=== PATIENT | male | born 1940 | race Caucasian/White ===

== ENCOUNTER 2019-06-19 12:19 | Inpatient (IN) | payer MEDICARE, OTHER ==
[~2019-06-19] VITALS: Ht 188 cm; Wt 104.3 kg
--- NOTE | 2019-06-19 12:49 | NUR ---
RECEIVED PT TO ROOM 2101 VIA WHEELCHAIR, WAS ABLE TO AMBULATE FROM WHEELCHAIR TO BED WITH STEADY GATE. ORIENTED PT TO ROOM AND CALL LIGHT. WILL ASSESS PT AND START PLAN OF CARE.
[2019-06-19] MEDS ORDERED: FLOMAX0.4 MG PO (13:20)
[2019-06-19] MEDS ORDERED: CATAPRES0.1 MG PO (13:24)
[2019-06-19] MEDS ORDERED: LIPITOR20 MG PO (13:24)
[2019-06-19] MEDS ORDERED: LISINOPRIL-HCT1 EAC8 PO (13:25)
[2019-06-19] MEDS ORDERED: PROCARDIA XL30 MG PO (13:25)
[2019-06-19] MEDS ORDERED: TRESIBA FL100 UNIT/1 SC (13:26)
[2019-06-19] MEDS ORDERED: PIOGLITAZONE15 MG PO (13:26)
[2019-06-19] MEDS ORDERED: XARELTO20 MG PO (13:27)
[2019-06-19] MEDS ORDERED: TENORMIN50 MG PO (13:27)
[2019-06-19] MEDS ORDERED: HYTRIN5 MG PO (13:27)
[2019-06-19 13:38] LABS: BASOPHILS 0.2 % (0-2); EOSINOPHILS 2.8 % (0-7); HEMATOCRIT 32.6 % (42.0-54.0); HEMOGLOBIN 10.2 g/dL (13.5-17.5); IMMATURE GRANULOCYTES 0.2 % (0-5); LYMPHOCYTES 12.4 % (15-50); MCH 28.3 pg (26.0-34.0); MCHC 31.3 g/dL (31.0-37.0); MCV 90.3 fL (80.0-100.0); MEAN PLATELET VOLUME 10.3 fL (7.4-10.4); MONOCYTES 7.6 % (2-11); NEUTROPHILS 76.8 % (40-80); PLATELET COUNT 219 10x3/uL (130-400); RBC 3.61 10x6/uL (4.20-6.10); RDW 15.2 % (11.5-14.5); WBC 10.9 10x3/uL (4.8-10.8)
[2019-06-19 14:01] LABS: ALBUMIN 3.4 g/dL (3.4-5.0); ALKALINE PHOSPHATASE 92 U/L (46-116); ALT (SGPT) 29 U/L (10-68); BILIRUBIN - TOTAL 0.38 mg/dL (0.2-1.3); CALC OSMOLALITY 292 mosm/kg (275-300); CALCIUM 8.3 mg/dL (8.5-10.1); CARBON DIOXIDE 29.1 mmol/L (21.0-32.0); CHLORIDE - SERUM 101 mmol/L (98-107); CKMB 2.4 U/L (0.0-3.6); CREATINE KINASE 210 UL (21-232); CREATININE - SERUM 2.4 mg/dL (0.6-1.3); GLUCOSE 195 mg/dL (74-106); POTASSIUM - SERUM 3.6 mmol/L (3.5-5.1); PROTEIN - SERUM 6.6 g/dL (6.4-8.2); SODIUM 139 mmol/L (136-145); UREA NITROGEN 41 mg/dL (7-18); eGFR NON AFRICAN AMERICAN 28 mL/min (90-120)
[2019-06-19 14:12] VITALS: BP 157/84; BMI 29.6
[2019-06-19 15:09] VITALS: BP 157/84
[2019-06-19 16:29] LABS: % SATURATION 10 % (15-55); IRON 38 ug/dl (35-150); TOTAL IRON BIND CAPACITY 377 ug/dl (260-445); UNSAT IRON BIND CAPACITY 339 ug/dl (150-375)
[2019-06-19 18:26] VITALS: BP 144/81
--- NOTE | 2019-06-19 19:05 | NUR ---
REPORT RECEIVED, WILL CONTINUE POC. PATIENT IS AAO, UP AD NIDA. PATIENT IS SITTING UP IN BED, DAUGHTER AT BEDSIDE. NO S/S OF DISTRESS OBSERVED, RR EVEN AND UNLABORED ON ROOM AIR. PATIENT DENIES NEEDS AT THIS TIME. CL IN REACH, BED LOCKED AND LOWERED. WILL CTM.
[2019-06-19 19:16] LABS: CALCIUM 8.9 mg/dL (8.5-10.1); CARBON DIOXIDE 30.6 mmol/L (21.0-32.0); CHLORIDE - SERUM 101 mmol/L (98-107); CKMB 2.3 U/L (0.0-3.6); CREATINE KINASE 206 UL (21-232); CREATININE - SERUM 2.5 mg/dL (0.6-1.3); SODIUM 137 mmol/L (136-145); TROPONIN-I 0.019 ng/mL (0.000-0.060); UREA NITROGEN 43 mg/dL (7-18); eGFR NON AFRICAN AMERICAN 27 mL/min (90-120)
[2019-06-19 19:21] LABS: CALC OSMOLALITY 294 mosm/kg (275-300); GLUCOSE 286 mg/dL (74-106)
[2019-06-19 19:22] LABS: POTASSIUM - SERUM 2.8 mmol/L (3.5-5.1)
--- NOTE | 2019-06-19 19:36 | NUR ---
PT REPORT RECIEVED FROM CAIT ROBERTS. PT RESTING ON BACK ALERT AND ORIENTED X4. RR EVEN AND UNLABORED ON 2L O2 NC. PT WEAK AND NEEDS ASSISTANCE WITH ADL'S. PT PEG TUBE FEEDING OF GLUCERNA 1.5 @45 WITH A 100CC FLUSH Q4. PT STATES HIS PAIN IS "THE SAME ALWAYS." 03/06. PT DENIES ANY FURTHER NEEDS ST THIS TIME. BED LOW CALL LIGHT WITHIN REACH. WILL CONTINUE TO MONITOR.
[2019-06-19 20:00] VITALS: BP 157/75
--- NOTE | 2019-06-19 20:00 | NUR ---
CRITICAL POTASSIUM RECEIVED, 20MEG OF K DUR ADMINISTERED. WILL CTM.
--- NOTE | 2019-06-19 22:35 | NUR ---
CONTINUING PROTOCOL FOR CRITICALLY LOW POTASSIUM. ANOTHER 20MEQ K DUR ADMINISTERED.
[2019-06-20] VITALS (7 sets, daily range): BP systolic 140–166; BP diastolic 74–89; Ht 188 cm; Wt 104.3 kg
[2019-06-20 00:18] LABS: APPEARANCE CLEAR (CLEAR); BILIRUBIN NEGATIVE (NEGATIVE); COLOR YELLOW (YELLOW); GLUCOSE 100 mg/dL (NEGATIVE); KETONE NEGATIVE (NEGATIVE); NITRITE NEGATIVE (NEGATIVE); PROTEIN 1+ mg/dL (NEGATIVE); UROBILINOGEN NORMAL (NORMAL)
[2019-06-20 00:26] LABS: BACTERIA FEW /hpf (NEGATIVE); EPITHELIAL CELLS 0-5 /hpf (0-5); RED CELLS - URINE 0-5 /hpf (0-5); WHITE CELLS - URINE NSEEN /hpf (NEGATIVE)
[2019-06-20 01:57] LABS: CKMB 1.6 U/L (0.0-3.6); CREATINE KINASE 178 UL (21-232); TROPONIN-I < 0.017 ng/mL (0.000-0.060)
--- NOTE | 2019-06-20 04:13 | NUR ---
I have reviewed this patient and I concur with the Shift Assessment completed by the Licensed Practical Nurse today this shift.
[2019-06-20 05:13] LABS: BASOPHILS 0.2 % (0-2); EOSINOPHILS 1.1 % (0-7); HEMATOCRIT 32.4 % (42.0-54.0); HEMOGLOBIN 10.4 g/dL (13.5-17.5); IMMATURE GRANULOCYTES 0.4 % (0-5); LYMPHOCYTES 9.5 % (15-50); MCHC 32.1 g/dL (31.0-37.0); MCV 90.3 fL (80.0-100.0); MEAN PLATELET VOLUME 9.9 fL (7.4-10.4); MONOCYTES 7.6 % (2-11); NEUTROPHILS 81.2 % (40-80); PLATELET COUNT 233 10x3/uL (130-400); RBC 3.59 10x6/uL (4.20-6.10); RDW 15.5 % (11.5-14.5); WBC 12.6 10x3/uL (4.8-10.8)
[2019-06-20 05:28] LABS: ANION GAP 11.9 mmol/L (8-16); CALCIUM 8.8 mg/dL (8.5-10.1); CREATININE - SERUM 2.3 mg/dL (0.6-1.3)
[2019-06-20 05:33] LABS: POTASSIUM - SERUM 2.9 mmol/L (3.5-5.1)
--- NOTE | 2019-06-20 07:30 | NUR ---
A/A/OX4. DENIES ANY PAIN, DISCOMFORT OR SOB AND VOICES NO REQUESTS. ASSESSMENT COMPLETED AND WILL CONTINUE POC.
--- NOTE | 2019-06-20 14:00 | NUR ---
IV LEAKING AT SITE. DC'D IV AND RESTARTED IN RIGHT HAND WITH 20 G X 1 ATTEMPT. PT TOLERATED WELL.
--- NOTE | 2019-06-20 17:19 | NUR ---
I HAVE REVIEWED THIS PATIENT AND I CONCUR WITH THE SHIFT ASSESSMENT COMPLETED BY THE SCIENTIFIC INFORMATICS ANALYST TODAY THIS SHIFT
--- NOTE | 2019-06-21 01:13 | NUR ---
PT RESTING IN BED WITH EYES CLOSED RR EVEN AND UNLABORED. NO S/S OF DISTRESS AT THIS TIME. BED LOW CALL LIGHT WITHIN REACH. WILL CONTINUE TO MONITOR.
--- NOTE | 2019-06-21 03:24 | NUR ---
I have reviewed this patient and I concur with the Shift Assessment completed by the Licensed Practical Nurse today this shift.
[2019-06-21 04:30] VITALS: BP 158/80
[2019-06-21 04:30] LABS: BASOPHILS 0.3 % (0-2); EOSINOPHILS 3.9 % (0-7); HEMATOCRIT 30.9 % (42.0-54.0); HEMOGLOBIN 9.5 g/dL (13.5-17.5); IMMATURE GRANULOCYTES 0.4 % (0-5); MCH 27.8 pg (26.0-34.0); MCHC 30.7 g/dL (31.0-37.0); MCV 90.4 fL (80.0-100.0); MEAN PLATELET VOLUME 10.5 fL (7.4-10.4); MONOCYTES 10.2 % (2-11); NEUTROPHILS 67.2 % (40-80); PLATELET COUNT 191 10x3/uL (130-400); RBC 3.42 10x6/uL (4.20-6.10); RDW 15.5 % (11.5-14.5); WBC 10.6 10x3/uL (4.8-10.8)
[2019-06-21 04:55] LABS: CALCIUM 8.4 mg/dL (8.5-10.1); CREATININE - SERUM 2.1 mg/dL (0.6-1.3)
--- NOTE | 2019-06-21 06:45 | NUR ---
REPORT RECEIVED. HE IS ALERT AND AWAKE. RESP EVEN WITHOUT LABOR. STATES I HOPE I GO HOME TODAY. SALINE LOCK IN RIGHT HAND INTACT. HE HAS SLIGHT EDEMA TO FEET BUT SKIN IS WRINKLED IN PLACES, 1+ EDEMA TO ANKLE AREA ONLY. BED IS LOCKED AND IN LOWEST POSITION. CAREPLAN REVIEW WITH SAFETY PRECAUTIONS IN PLACE. CL IN REACH
[2019-06-21 09:17] VITALS: BP 170/88
[2019-06-21] MEDS ORDERED: BUMEX2 MG PO (10:43)
[2019-06-21] MEDS ORDERED: K-DUR20 MEQ PO (10:44)
--- NOTE | 2019-06-21 11:24 | MORECARE ---
CASE MANAGEMENT DISCHARGE SUMMARY PATIENT: MANJEET COPELAND UNIT: [id number] ADM DATE: 06/19/19 AGE: 78 : 39 SEX: M ROOM/BED: D.2102 AUTHOR: FAY YOUNG PHYSICIAN: REFERRING PHYSICIAN: CYNTHIA SMITH MD DATE OF SERVICE: 06/21/19 Discharge Plan Patient Name: MANJEET COPELAND Facility: [facility]:[place] : 1940 Planned Disposition: Home Anticipated Discharge Date: Discharge Date: Expected LOS: Initial Reviewer: [email or web address] Initial Review Date: 06/21/2019 Generated: 06/21/19 12:23 pm Patient Name: MANJEET COPELAND Page [phone] at 1124 All edits/amendments must be made on the electronic document DICTATION DATE: 06/21/19 112 WRINGER MACHINE OPERATOR: DESIRE 06/21/19 1123 RPT#: [id number] DC DATE: STATUS: ADM IN [facility] [address] [place] [address] END OF REPORT
--- NOTE | 2019-06-21 11:52 | MORECARE ---
CASE MANAGEMENT DISCHARGE SUMMARY PATIENT: MANJEET COPELAND UNIT: [id number] ADM DATE: 06/19/19 AGE: 78 : 39 SEX: M ROOM/BED: D.210 AUTHOR: FAY YOUNG PHYSICIAN: REFERRING PHYSICIAN: CYNTHIA SMTIH MD DATE OF SERVICE: 06/21/19 Discharge Plan Patient Name: MANJEET COPELAND Facility: [facility]:[place] : 1940 Planned Disposition: Home Anticipated Discharge Date: Discharge Date: Expected LOS: Initial Reviewer: [email or web address] Initial Review Date: 06/21/2019 Generated: 06/21/19 12:51 pm DCPIA - Discharge Planning Initial Assessment Updated by [email or web address]: Deena Parker on 06/21/19 11:49 am * Is the patient Alert and Oriented? Yes * PCP SARAH * Pharmacy [facility] * Preadmission Environment Home Alone * ADLs Independent * Equipment Glucometer * List name and contact numbers for known caregivers / representatives who currently or will assist patient after discharge: YOANNA PEREZ, DAUGHTER, * Additional services required to return to the preadmission environment? No * Can the patient safely return to the preadmission environment? Yes * Has this patient been hospitalized within the prior 30 days at any hospital? No Last DP export: 06/21/19 10:24 Patient Name: MANJEET COPELAND Page 43107 at 1152 All edits/amendments must be made on the electronic document DICTATION DATE: 06/21/19 1151 ALMOND HULLER: DM 06/21/19 1151 RPT#: [id number] DC DATE: STATUS: ADM IN [facility] [address] [place] [address] END OF REPORT
--- NOTE | 2019-06-21 11:59 | MORECARE ---
CASE MANAGEMENT DISCHARGE SUMMARY PATIENT: MANJEET COPELAND UNIT: [id number] ADM DATE: 06/19/19 AGE: 78 : 39 SEX: M ROOM/BED: D.2102 AUTHOR: FAY YOUNG PHYSICIAN: REFERRING PHYSICIAN: CYNTHIA SMITH MD DATE OF SERVICE: 06/21/19 Discharge Plan Patient Name: MANJEET COPELAND Facility: [facility]:[place] : 1940 Planned Disposition: Home Anticipated Discharge Date: Discharge Date: Expected LOS: Initial Reviewer: [email or web address] Initial Review Date: 06/21/2019 Generated: 06/21/19 12:59 pm Comments DCP- Discharge Planning Updated by [email or web address]: Deena Parker on 06/21/19 10:[address] Patient Name: MANJEET COPELAND Admission Status: Elective Accout number: [id number] Admission Date: 06-19-2019 : 1940 Admission Diagnosis: Attending: CYNTHIA SMITH Current LOS: 2 Anticipated DC Date: Planned Disposition: Home Primary Insurance: MEDICARE A & B Discharge Planning Comments: CM MET WITH PATIENT AND FAMILY THIS MORNING ABOUT DC PLANNING/NEEDS. STATES PLANS TO DC TO HOME AND IS WANTING TO GO TODAY. DENIES NEED FOR HH, REHAB, OR EQUIPMENT. CM WILL FOLLOW AND ASSIST NEEDED. Water Safety Instructor: Deena Parker DCPIA - Discharge Planning Initial Assessment Updated by [email or web address]: Deena Parker on 06/21/19 11:49 am * Is the patient Alert and Oriented? Yes * PCP SARAH * Pharmacy [facility] * Preadmission Environment Home Alone * ADLs Independent * Equipment Glucometer * List name and contact numbers for known caregivers / representatives who currently or will assist patient after discharge: YOANNA PEREZ, DAUGHTER, * Additional services required to return to the preadmission environment? No * Can the patient safely return to the preadmission environment? Yes * Has this patient been hospitalized within the prior 30 days at any hospital? No Last DP export: 06/21/19 10:52 Patient Name: MANJEET COPELAND Page [phone] at 1159 All edits/amendments must be made on the electronic document DICTATION DATE: 06/21/191158 HOTEL GUEST SERVICE AGENT: DESIRE 06/21/191158 RPT#: [id number] DC DATE: STATUS: ADM IN [facility] [address] [place] [address] END OF REPORT
--- NOTE | 2019-06-21 13:00 | NUR ---
DISCHARGE PAPERS EXPLAINED IN DETAIL WITH FAMILY PRESENT AND DAUGHTER IN LAW WHO SETS HIS MEDS UP. AWARE OF NEW MEDS, TO WEIGH SELF DAILY AND REPORT TO MD IF WEIGT GAIN OF 5 POUNDS OR MORE, REVIEW OF CURRENT MEDICATIONS DONE, HE UNDERSTANDS TO MONITOR URINE OUTPUT AND TO REPORT DECREASE IN AMOUNT OR ISSUES TO MD. SALINE LOCK TO TOP OF RIGHT HAND D/C WITH CATH TIP INTACT, MINIMAL BLEEDING CONTROLLED. TELEMETRY REMOVED AND RETURNED TO COMMERCIAL DRIVER'S LICENSE DRIVER. RESP EVEN WITHOUT LABOR, NO C/O VOICED. STABLE CONDITION.
--- NOTE | 2019-06-21 13:05 | NUR ---
TRANSFERED BY W/C TO PRIVATE [employer] AT THIS TIME
--- NOTE | 2019-06-21 15:51 | MORECARE ---
CASE MANAGEMENT DISCHARGE SUMMARY PATIENT: MANJEET COPELAND UNIT: [id number] ADM DATE: 06/19/19 AGE: 78 : 39 SEX: M ROOM/BED: D.2102 AUTHOR: FAY YOUNG PHYSICIAN: REFERRING PHYSICIAN: CYNTHIA SMITH MD DATE OF SERVICE: 06/21/19 Discharge Plan Patient Name: MANJEET COPELAND Facility: [facility]:[place] : 1940 Planned Disposition: Home Anticipated Discharge Date: Discharge Date: 06/21/2019 Expected LOS: Initial Reviewer: [email or web address] Initial Review Date: 06/21/2019 Generated: 06/21/19 4:51 pm Comments DCP- Discharge Planning Updated by [email or web address]: Deena Parker on 06/21/19 10:[address] Patient Name: MANJEET COPELAND Admission Status: Elective Accout number: [id number] Admission Date: 06-19-2019 : 1940 Admission Diagnosis: Attending: CYNTHIA SMITH Current LOS: 2 Anticipated DC Date: Planned Disposition: Home Primary Insurance: MEDICARE A & B Discharge Planning Comments: CM MET WITH PATIENT AND FAMILY THIS MORNING ABOUT DC PLANNING/NEEDS. STATES PLANS TO DC TO HOME AND IS WANTING TO GO TODAY. DENIES NEED FOR HH, REHAB, OR EQUIPMENT. CM WILL FOLLOW AND ASSIST NEEDED. Clinical Trial Assistant: Deena Parker DCPIA - Discharge Planning Initial Assessment Updated by [email or web address]: Deena Parker on 06/21/19 11:49 am * Is the patient Alert and Oriented? Yes * PCP SARAH * Pharmacy [facility] * Preadmission Environment Home Alone * ADLs Independent * Equipment Glucometer * List name and contact numbers for known caregivers / representatives who currently or will assist patient after discharge: YOANNA PEREZ, DAUGHTER, * Additional services required to return to the preadmission environment? No * Can the patient safely return to the preadmission environment? Yes * Has this patient been hospitalized within the prior 30 days at any hospital? No Last DP export: 06/21/19 11:00 Patient Name: MANJEET COPELAND Page 98139 at 1551 All edits/amendments must be made on the electronic document DICTATION DATE: 06/21/191550 MANAGER VALUATION: DESIRE 06/21/191550 RPT#: [id number] DC DATE:06/21/19 STATUS: DIS IN [facility] [address] [place] [address] END OF REPORT
== END 2019-06-21 13:05 | disposition home or self-care (01) | DRG 291 ==
LOC: D.SDCHOLD 12:19 → D.M2 12:32
PROVIDERS: Internal Medicine Nephrology; ADMIT Family Medicine; ATTEND Family Medicine
DX: I11.0 Hypertensive heart disease with heart failure (principal); I50.21 Acute systolic (congestive) heart failure; N17.9 Acute kidney failure, unspecified; Z79.4 Long term (current) use of insulin; E11.40 Type 2 diabetes mellitus with diabetic neuropathy, unspecified; I48.91 Unspecified atrial fibrillation; Z79.01 Long term (current) use of anticoagulants; D50.9 Iron deficiency anemia, unspecified; E87.6 Hypokalemia; R60.0 Localized edema; T38.3X5A Adverse effect of insulin and oral hypoglycemic [antidiabetic] drugs, initial encounter

== ENCOUNTER → 2020-11-23 14:47 | Outpatient (CLI) | payer MEDICARE, OTHER ==
[2019-06-20 12:02] VITALS: BMI 29.5
[~2020-11-23 14:47] MED LIST: BUMEX2 MG PO; CATAPRES0.1 MG PO; FLOMAX0.4 MG PO; HYTRIN5 MG PO; K-DUR20 MEQ PO; LIPITOR20 MG PO; LISINOPRIL-HCT1 EAC8 PO; PIOGLITAZONE15 MG PO; PROCARDIA XL30 MG PO; TENORMIN50 MG PO; TRESIBA FL100 UNIT/1 SC; XARELTO20 MG PO
== END | disposition home or self-care (01) ==
LOC: D.CT 14:47
PROVIDERS: ATTEND Nurse Practitioner
DX: K40.90 Unilateral inguinal hernia, without obstruction or gangrene, not specified as recurrent (principal)

== ENCOUNTER 2020-11-30 08:30 | Inpatient (IN) | payer MEDICARE, OTHER ==
[~2020-11-30] VITALS: Ht 188 cm; Wt 93.9 kg
--- NOTE | ~2020-11-30 | OP ---
PATIENT NAME: MANJEET COPELAND MEDICAL RECORD: [id number] :[birth year] LOCATION:D.MS [id number] ADMISSION DATE:12/01/20 SURGEON: PANDA LYN MD DATE OF OPERATION: 12/02/2020 PREOPERATIVE DIAGNOSES: 1. Right scrotal hematoma status post right inguinal hernia repair. 2. Ocpqm-ws-exnvydn kidney disease. 3. Urinary retention postop. 4. Acute blood loss anemia. 5. Diabetes mellitus. 6. Hypertension. 7. Chronic anticoagulation usage. POSTOPERATIVE DIAGNOSES: 1. Right scrotal hematoma status post right inguinal hernia repair. 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 3. Urinary retention postop. 4. Acute blood loss anemia. 5. Diabetes mellitus. 6. Hypertension. 7. Chronic anticoagulation usage. PROCEDURE: Evacuation of right scrotal hematoma. SURGEON: Panda Lyn MD REPORT OF PROCEDURE: The patient's perineal region and scrotum were all prepped and draped in sterile fashion. A longitudinal incision was made in the crease on the middle aspect of the patient's scrotum. We did blunt dissection into the patient's right hemiscrotum and encountered some bloody return. I was able to push my finger into the opening and there was a large amount of clot present in the right hemiscrotum. I was able to break up this clot and squeeze most of it out. Once we were able to get most of the clot out, I was able to feel again did not feel any evidence of any further clot present. The wound was then irrigated out thoroughly with peroxide and saline solution. At the conclusion of the case, I looked to see if there was any bleeding from the skin level in the scrotum and there was a small amount, which was treated with electrocautery. We then closed the opening using interrupted 4-0 Monocryl. The wounds was then dressed appropriately and a pressure dressing was applied to the right groin. COMPLICATIONS: None. CONDITION: Stable. ANESTHESIA: General endotracheal. BLOOD LOSS: 100 mL. TRANSINT:[id number] Voice Confirmation ID: [id number] DOCUMENT ID: [id number] OPERATIVE REPORT [id number] BETTINAGradyMANJEET CHRISTIAN MD CC: SYED BERMUDEZ [phone] DICTATION DATE: 12/02/20 123 INFORMATION LEAD: 12/02/201950 ADM IN [facility] [address] [place] [address]
[~2020-11-30 08:30] MED LIST changes: +NOVOLOG100 UNIT/1 SC
[2020-11-30 08:56] LABS: ANION GAP 12.4 mmol/L (8-16); BASOPHILS 0.3 % (0-2); CALCIUM 9.2 mg/dL (8.5-10.1); CARBON DIOXIDE 28.8 mmol/L (21.0-32.0); CREATININE - SERUM 2.1 mg/dL (0.6-1.3); EOSINOPHILS 3.5 % (0-7); HEMATOCRIT 38.8 % (42.0-54.0); HEMOGLOBIN 12.5 g/dL (13.5-17.5); IMMATURE GRANULOCYTES 0.3 % (0-5); LYMPHOCYTE ABS# 1.84 10x3/uL (1.32-3.57); MCH 28.2 pg (26.0-34.0); MCHC 32.2 g/dL (31.0-37.0); MCV 87.4 fL (80.0-100.0); MEAN PLATELET VOLUME 9.8 fL (7.4-10.4); MONOCYTES 7.3 % (2-11); NEUTROPHIL ABS# 8.33 10x3/uL (1.78-5.38); NEUTROPHILS 72.6 % (40-80); POTASSIUM - SERUM 3.2 mmol/L (3.5-5.1); RBC 4.44 10x6/uL (4.20-6.10); RDW 14.9 % (11.5-14.5); WBC 11.5 10x3/uL (4.8-10.8)
[2020-11-30 09:00] LABS: APTT 27.6 SECONDS (22.8-39.4); INR 1.16 (0.85-1.17); PLATELET COUNT 270 10x3/uL (130-400); PROTIME 13.7 SECONDS (11.6-15.0)
[2020-11-30 09:39] VITALS: BP 142/88; BMI 26.6
--- NOTE | 2020-11-30 15:11 | NUR ---
PT DENIES PAIN AT THIS TIME. STATES HE FEELS GOOD JUST THIRSTY. PROVIDED ICE CHIPS. PT TOLERATED.
--- NOTE | 2020-11-30 16:53 | NUR ---
DR BERMUDEZ AT BEDSIDE
--- NOTE | 2020-11-30 20:00 | NUR ---
BLADDER SCANNED PT 217ML ENCOURAGED PT TO CONTINUE TO DRINK IV FLUID INCREASED TO 150ML/HR
--- NOTE | 2020-11-30 20:15 | NUR ---
REINFORCED DRESSING AT RT GROIN
--- NOTE | 2020-11-30 21:08 | NUR ---
ASSISTED PT BACK TO BED FROM TOILET. STATES IS A LITTLE DIZZY THIS TIME. DAUGHTER AT BEDSIDE TO TAKE PT FSBS- STATES IS 238, DAUGHTER AND PT ADMINISTERED PT HOME INSULIN. DAUGHTER PROVIDED FOOD AND IS ASSISTING PT WITH EATING. 5 BP 141/85
--- NOTE | 2020-11-30 21:45 | NUR ---
BLADDER SCANNED PT, 422ML
--- NOTE | 2020-11-30 22:10 | NUR ---
CLAY CATHETER INSERTED, 16 FR, WITH 375ML RETURN, BLUE/GREEN URINE, SCROTOM IS BRUISED AND SWOLLEN
[2020-11-30 23:03] VITALS: BP 136/77; BMI 26.6
--- NOTE | 2020-11-30 23:15 | NUR ---
RECEIVED PT FROM OUTPATIENT. LAYING IN BED A&O X4. PIV TO LEFT HAND PATENT AND INFUSING. SCROTUM SWOLLEN AND PURPLE. DENTURE, PARTIALS. EDUCATED PT ON CL AND NEEDS, VERBALIZED UNDERSTANDING. BED LOW, CL IN REACH.
[2020-12-01] VITALS (8 sets, daily range): BP systolic 94–136; BP diastolic 55–77
[2020-12-01 05:39] LABS: BASOPHILS 0.1 % (0-2); EOSINOPHILS 0 % (0-7); IMMATURE GRANULOCYTES 0.4 % (0-5); LYMPHOCYTE ABS# 1.66 10x3/uL (1.32-3.57); LYMPHOCYTES 11.7 % (15-50); MCH 26.9 pg (26.0-34.0); MCHC 30.7 g/dL (31.0-37.0); MCV 87.8 fL (80.0-100.0); MONOCYTES 8.8 % (2-11); NEUTROPHIL ABS# 11.18 10x3/uL (1.78-5.38); PLATELET COUNT 247 10x3/uL (130-400); RDW 14.9 % (11.5-14.5); WBC 14.2 10x3/uL (4.8-10.8)
[2020-12-01 05:50] LABS: ALBUMIN 2.5 g/dL (3.4-5.0); BILIRUBIN - TOTAL 0.48 mg/dL (0.2-1.3); CALCIUM 7.4 mg/dL (8.5-10.1); MAGNESIUM - SERUM 1.8 mg/dL (1.8-2.4); PROTEIN - SERUM 5.1 g/dL (6.4-8.2)
[2020-12-01 05:59] LABS: ANION GAP 19.5 mmol/L (8-16); CARBON DIOXIDE 19.3 mmol/L (21.0-32.0); CREATININE - SERUM 3.1 mg/dL (0.6-1.3); POTASSIUM - SERUM 3.8 mmol/L (3.5-5.1)
[2020-12-01 06:10] LABS: HEMATOCRIT 25.1 % (42.0-54.0); HEMOGLOBIN 7.7 g/dL (13.5-17.5); RBC 2.86 10x6/uL (4.20-6.10)
--- NOTE | 2020-12-01 07:15 | NUR ---
PT RESTING QUIETLY IN BED. RESP EVEN AND UNLABORED. DENIES PAIN AT THIS TIME. IV TO LEFT HAND WITH NS @ 75ML/HR INFUSING VIA PUMP. SITE WITHOUT REDNESS OR EDEMA. SCROTAL SWELLING NOTED, WITH BRUISING DISCOLORATION ALSO. F/C PATENT TO GRAVITY DRAINING BLUE TINGED URINE. DENIES FURTHER NEEDS AT THIS TIME. CL WITHIN REACH. ENCOURAGED TO CALL WITH NEEDS. CONTINUE POC
[2020-12-01 12:56] LABS: HEMATOCRIT 20.2 % (42.0-54.0)
[2020-12-01 13:13] LABS: HEMOGLOBIN 6.5 g/dL (13.5-17.5)
--- NOTE | 2020-12-01 14:00 | NUR ---
DR. MEEHAN AT PT BEDSIDE. SPOKE WITH HIM REGARDING URINE BEING GREENISH BLUE FROM DYE INJECTED DURING SURGERY 11/30/20. DISCUSSED DYE IN URINE AND NEED FOR UA AND URINE CULTURE AND IF URINE WOULD ALTAR UA AND CULTURE. HE VOICES UNCERTAINTY AND STATES THAT OBTAINING A URINE SAMPLE COULD WAIT, NOT TO MAKE IT A PRIORITY AT THIS TIME. WILL PASS TO ONCOMING SHIFT TO OBTAIN AT LATER TIME.
--- NOTE | 2020-12-01 19:45 | NUR ---
RECEIVED BEDSIDE REPORT. PT LAYING IN BED DISORIENTATED TO TIME AND SITUATION. PIV TO LEFT HAND PATENT AND INFUSING, NO REDNESS OR SWELLING. SCROTUM SWOLLEN AND PURPLE IN COLOR. INCISION TO RIGHT GRION AREA, DRSG C/D/I. BED ALARM ON, CL IN REACH.
--- NOTE | 2020-12-01 22:09 | NUR ---
REPORT RECEIVED, PT A&O, DAUGHTER AT BEDSIDE. NO S/S OF DISTRESS OBSERVED. RR EVEN AND UNLABORED ON RA. PT HAS MOMENTS OF CONFUSION TO WHERE HE IS. BED LOCKED AND LOWERED, CL IN REACH. ASSESSMENT COMPLETE. WILL CONT POC.
[2020-12-02] VITALS (16 sets, daily range): BP systolic 115–163; BP diastolic 59–83
[2020-12-02 06:06] LABS: BASOPHILS 0.1 % (0-2); EOSINOPHILS 0.3 % (0-7); IMMATURE GRANULOCYTES 0.2 % (0-5); LYMPHOCYTE ABS# 0.82 10x3/uL (1.32-3.57); LYMPHOCYTES 7.2 % (15-50); MCH 27.6 pg (26.0-34.0); MCHC 32.1 g/dL (31.0-37.0); MEAN PLATELET VOLUME 9.6 fL (7.4-10.4); MONOCYTES 10.6 % (2-11); NEUTROPHIL ABS# 9.24 10x3/uL (1.78-5.38); NEUTROPHILS 81.6 % (40-80); RBC 2.94 10x6/uL (4.20-6.10); WBC 11.3 10x3/uL (4.8-10.8)
[2020-12-02 06:21] LABS: HEMATOCRIT 25.2 % (42.0-54.0); HEMOGLOBIN 8.1 g/dL (13.5-17.5); MCV 85.7 fL (80.0-100.0); PLATELET COUNT 177 10x3/uL (130-400)
[2020-12-02 06:39] LABS: ALBUMIN 2.6 g/dL (3.4-5.0); BILIRUBIN - TOTAL 0.54 mg/dL (0.2-1.3); CALCIUM 7.8 mg/dL (8.5-10.1); CREATININE - SERUM 3.1 mg/dL (0.6-1.3); MAGNESIUM - SERUM 2.2 mg/dL (1.8-2.4); PROTEIN - SERUM 5.5 g/dL (6.4-8.2)
[2020-12-02 06:40] LABS: ANION GAP 12.9 mmol/L (8-16); CARBON DIOXIDE 24.3 mmol/L (21.0-32.0); POTASSIUM - SERUM 3.2 mmol/L (3.5-5.1)
--- NOTE | 2020-12-02 07:59 | NUR ---
RESTING IN BED, NO DISTRESS NOTED, NPO FOR SCROTAL DRAINAGE, MONITOR SUGARS, NEED UA SPECIMEN
--- NOTE | 2020-12-02 11:00 | NUR ---
TAKEN TO SURGERY PER BED
--- NOTE | 2020-12-02 13:39 | NUR ---
RETURNED FROM SURGERY
--- NOTE | 2020-12-02 13:50 | NUR ---
dressing saturated upon arrival to floor, changed pads under pt, cont to monitor
[2020-12-02 15:51] LABS: BILIRUBIN NEGATIVE (NEGATIVE); KETONE NEGATIVE (NEGATIVE); NITRITE NEGATIVE (NEGATIVE); UROBILINOGEN NORMAL mg/dL (< 2)
[2020-12-02 15:53] LABS: WHITE CELLS - URINE 0-5 HPF (0-1)
[2020-12-02 15:54] LABS: BACTERIA OCC HPF (NONE SEEN); SQUAMOUS EPITHELIAL OCC HPF (0-4)
[2020-12-02 17:47] LABS: HEMATOCRIT 25.7 % (42.0-54.0); HEMOGLOBIN 8.4 g/dL (13.5-17.5)
--- NOTE | 2020-12-02 18:00 | NUR ---
pt confused and wanting to go home, son in room, served supper tray, cont to monitor
--- NOTE | 2020-12-02 19:45 | NUR ---
RECEIVED BEDSIDE REPORT. PT LAYING IN BED, A&O X3, DISORIENTATED TO TIME. PIV TO LEFT UPPER ARM PATENT AND S/L, NO REDNESS OR SWELLING. INCISION TO SCROTUM, DRSG C/D/I. CLAY IN PLACE, DRAINING TO GRAVITY, STATLOCK IN PLACE. PT BEDFAST, TOTAL CARE AT THIS TIME. EDUCATED PT ON CL AND NEEDS, VERBALIZED UNDERSTANDING. BED LOW, ALARM ON, CL IN REACH.
[2020-12-03] VITALS: BP 122/74
--- NOTE | 2020-12-03 01:30 | NUR ---
PT SITTING ON EDGE OF BED, PULLED OUT IV. BANDAGES SOILED. CHANGED DRESSING, PERFORMED BED BATH. PT TOLERATED WELL. BED LOW, CL IN REACH.
[2020-12-03 04:00] VITALS: BP 141/77
[2020-12-03 06:06] LABS: BASOPHILS 0.1 % (0-2); EOSINOPHILS 0.1 % (0-7); HEMATOCRIT 24.7 % (42.0-54.0); HEMOGLOBIN 7.9 g/dL (13.5-17.5); IMMATURE GRANULOCYTES 0.2 % (0-5); LYMPHOCYTE ABS# 0.95 10x3/uL (1.32-3.57); LYMPHOCYTES 7.6 % (15-50); MCH 27.9 pg (26.0-34.0); MCV 87.3 fL (80.0-100.0); MEAN PLATELET VOLUME 10.1 fL (7.4-10.4); MONOCYTES 10.2 % (2-11); NEUTROPHIL ABS# 10.23 10x3/uL (1.78-5.38); NEUTROPHILS 81.8 % (40-80); PLATELET COUNT 195 10x3/uL (130-400); RBC 2.83 10x6/uL (4.20-6.10); RDW 15.3 % (11.5-14.5); WBC 12.5 10x3/uL (4.8-10.8)
[2020-12-03 06:29] LABS: ALBUMIN 2.7 g/dL (3.4-5.0); ANION GAP 14.9 mmol/L (8-16); BILIRUBIN - TOTAL 0.64 mg/dL (0.2-1.3); CALCIUM 7.8 mg/dL (8.5-10.1); CARBON DIOXIDE 23.4 mmol/L (21.0-32.0); MAGNESIUM - SERUM 2.4 mg/dL (1.8-2.4); POTASSIUM - SERUM 3.3 mmol/L (3.5-5.1); PROTEIN - SERUM 5.9 g/dL (6.4-8.2)
[2020-12-03 06:32] LABS: CREATININE - SERUM 2.3 mg/dL (0.6-1.3)
--- NOTE | 2020-12-03 07:47 | NUR ---
RECIEVED BEDSIDE REPORT. RESTING. AROUSES TO VOICE. DENIES NEEDS AT THIS TIME. BED LOW POSITION, CALL LIGHT IN REACH. FRANKLYN ALARM ON. WILL CONTINUE TO MONITOR.
[2020-12-03 08:53] VITALS: BP 152/89
--- NOTE | 2020-12-03 10:42 | NUR ---
NEW IV STARTED IN LEFT AC. 20 GAUGE. GOT ON 4TH ATTEPMT
[2020-12-03 12:28] VITALS: BP 169/82
[2020-12-03 13:53] VITALS: Ht 188 cm; Wt 93.9 kg
[2020-12-03 15:08] LABS: HEMATOCRIT 23.5 % (42.0-54.0); HEMOGLOBIN 7.6 g/dL (13.5-17.5)
[2020-12-03 15:49] VITALS: BP 124/69
--- NOTE | 2020-12-03 16:12 | MORECARE ---
CASE MANAGEMENT DISCHARGE SUMMARY PATIENT: MANJEET COPELAND UNIT: [id number] ADM DATE: 12/01/20 AGE: 80 : 39 SEX: M ROOM/BED: D.[facility]9 AUTHOR: HECTOR,DOC PHYSICIAN: REFERRING PHYSICIAN: SYED BERMUDEZ MD DATE OF SERVICE: 12/03/20 Case Management Discharge Planning Summary DCP REVIEW SUMMARY ANTICIPATED D/C DATE: EXPECTED LOS : CASE STATUS: DCP Initiated INITIAL REVIEW: 12/01/2020 INITIAL REVIEWER: Deena Parker FINAL DISCHARGE DISPOSITION: : FINAL REVIEWER: FINAL REVIEW DATE: DCP Focus Questions & Answers QUESTION: ANSWER : PATIENT: MANJEET COPELAND ENCOUNTER: [id number] MEDICAL RECORD#: [id number] ADMISSION DATE: 12/01/2020 DISCHARGE DATE: ATTENDING MD: SYED CORBETT : AGE: 80 MARITAL STATUS: W DC PLAN ID: [id number] FACILITY: [facility] PRINTED ON: 12/03/20 16:12 CT All edits/amendments must be made on the electronic document DICTATION DATE: 12/03/201611 FUSELAGE FRAMER: DM 12/03/20 161 RPT#: [id number] DC DATE: STATUS: ADM IN [facility] [address] [place] [address] END OF REPORT
--- NOTE | 2020-12-03 16:25 | MORECARE ---
CASE MANAGEMENT DISCHARGE SUMMARY PATIENT: MANJEET COPELAND UNIT: [id number] ADM DATE: 12/01/20 AGE: 80 : 39 SEX: M ROOM/BED: D.2239 AUTHOR: HECTOR,DOC PHYSICIAN: REFERRING PHYSICIAN: SYED BERMUDEZ MD DATE OF SERVICE: 12/03/20 Case Management Discharge Planning Summary COMMENTS ENTERED DATE: 12/03/20 16:18 CT COMMENT TYPE: Discharge Planning REVIEWER: Deena Parker CM MET WITH PATIENT DAUGHTER YOANNA PEREZ TODAY. STATES SHE WILL STAY WITH HER DAD FOR LONG HE NEEDS WHEN HE RETURNS HOME. HE WILL NEED HOME HEALTH AND A WALKER AT HOME PER HIS DAUGHTER IF HE QUALIFIES. DAUGHTER ANTICIPATES HOME NO SOONER THAN TOMORROW. CM TO FOLLOW AND ASSIST NEEDED. I WILL SEND REFERRAL TO [facility] AND ORDER A WALKER FROM [facility]. DCP REVIEW SUMMARY ANTICIPATED D/C DATE: EXPECTED LOS : CASE STATUS: DCP Initiated INITIAL REVIEW: 12/01/2020 INITIAL REVIEWER: Deena Parker FINAL DISCHARGE DISPOSITION: : FINAL REVIEWER: FINAL REVIEW DATE: DCP Focus Questions & Answers DCP Screen QUESTION: ANSWER High Risk Factors: : None Age: : 79 + Prior living environment: : Lives Alone Disability ranking: : Grade 2: Slight disability DCP Evaluation QUESTION: ANSWER Patient's ability to cope with chronic illness : d. No chronic illness Would patient like to participate in any Care Coordination programs (if applicable): : Not applicable Mental health screen: : No mental health history DCP Re-evaluation QUESTION: ANSWER Would patient like to participate in any Care Coordination programs (if applicable): : Not applicable PATIENT: MANJEET COPELAND ENCOUNTER: [id number] MEDICAL RECORD#: [id number] ADMISSION DATE: 12/01/2020 DISCHARGE DATE: ATTENDING MD: SYED CORBETT : AGE: 80 MARITAL STATUS: W DC PLAN ID: [id number] FACILITY: [facility] PRINTED ON: 12/03/20 16:24 CT All edits/amendments must be made on the electronic document DICTATION DATE: 12/03/201623 PROJECT ARCHIVIST: DESIRE 12/03/201623 RPT#: [id number] DC DATE: STATUS: ADM IN [facility] [address] [place] [address] END OF REPORT
[2020-12-03 20:00] VITALS: BP 119/71
[2020-12-04 04:00] VITALS: BP 156/90
[2020-12-04 07:24] LABS: BASOPHILS 0.1 % (0-2); EOSINOPHILS 4.3 % (0-7); IMMATURE GRANULOCYTES 0.2 % (0-5); LYMPHOCYTE ABS# 1.79 10x3/uL (1.32-3.57); LYMPHOCYTES 14.3 % (15-50); MCHC 32.3 g/dL (31.0-37.0); MCV 86.7 fL (80.0-100.0); MEAN PLATELET VOLUME 10.1 fL (7.4-10.4); MONOCYTES 9.5 % (2-11); NEUTROPHILS 71.6 % (40-80); PLATELET COUNT 226 10x3/uL (130-400); RBC 3.39 10x6/uL (4.20-6.10); RDW 15.6 % (11.5-14.5); WBC 12.6 10x3/uL (4.8-10.8)
[2020-12-04 07:28] LABS: HEMATOCRIT 29.4 % (42.0-54.0); HEMOGLOBIN 9.5 g/dL (13.5-17.5)
[2020-12-04 07:58] LABS: ALBUMIN 2.9 g/dL (3.4-5.0); ANION GAP 14.6 mmol/L (8-16); BILIRUBIN - TOTAL 0.99 mg/dL (0.2-1.3); CALCIUM 8.3 mg/dL (8.5-10.1); CREATININE - SERUM 2.1 mg/dL (0.6-1.3); MAGNESIUM - SERUM 2.4 mg/dL (1.8-2.4); POTASSIUM - SERUM 3.6 mmol/L (3.5-5.1); PROTEIN - SERUM 6.5 g/dL (6.4-8.2)
[2020-12-04 08:44] VITALS: BP 115/41
[2020-12-04 13:54] VITALS: BP 135/81
--- NOTE | 2020-12-04 16:39 | MORECARE ---
CASE MANAGEMENT DISCHARGE SUMMARY PATIENT: MANJEET COPELAND UNIT: [id number] ADM DATE: 12/01/20 AGE: 80 : 39 SEX: M ROOM/BED: D.2239 AUTHOR: HECTOR,DOC PHYSICIAN: REFERRING PHYSICIAN: SYED BERMUDEZ MD DATE OF SERVICE: 12/04/20 Case Management Discharge Planning Summary COMMENTS ENTERED DATE: 12/04/20 16:26 CT COMMENT TYPE: Discharge Planning REVIEWER: Deena Parker REFERRAL SENT WITH [facility] OF [facility] WHEN PATIENT DISCHARGES. HE MAY NEED A WALKER DEPENDING ON PT EVAL. WE WILL NEED TO FAX DC ORDER AND SUMMARY TO [facility]. THEY CAN START CARE ON MONDAY IF PATIENT IS DC'D TODAY OR TOMORROW. ENTERED DATE: 12/03/20 16:18 CT COMMENT TYPE: Discharge Planning REVIEWER: Deena Parker CM MET WITH PATIENT DAUGHTER YOANNA PEREZ TODAY. STATES SHE WILL STAY WITH HER DAD FOR LONG HE NEEDS WHEN HE RETURNS HOME. HE WILL NEED HOME HEALTH AND A WALKER AT HOME PER HIS DAUGHTER IF HE QUALIFIES. DAUGHTER ANTICIPATES HOME NO SOONER THAN TOMORROW. CM TO FOLLOW AND ASSIST NEEDED. I WILL SEND REFERRAL TO [facility] AND ORDER A WALKER FROM [facility]. DCP REVIEW SUMMARY ANTICIPATED D/C DATE: EXPECTED LOS : CASE STATUS: DCP Initiated INITIAL REVIEW: 12/01/2020 INITIAL REVIEWER: Deena Parker FINAL DISCHARGE DISPOSITION: : FINAL REVIEWER: FINAL REVIEW DATE: DCP Focus Questions & Answers DCP Screen QUESTION: ANSWER High Risk Factors: : None Age: : 79 + Prior living environment: : Lives Alone Disability ranking: : Grade 2: Slight disability DCP Evaluation QUESTION: ANSWER Patient's ability to cope with chronic illness : d. No chronic illness Would patient like to participate in any Care Coordination programs (if applicable): : Not applicable Mental health screen: : No mental health history DCP Re-evaluation QUESTION: ANSWER Would patient like to participate in any Care Coordination programs (if applicable): : Not applicable PATIENT: MANJEET COPELAND ENCOUNTER: [id number] MEDICAL RECORD#: [id number] ADMISSION DATE: 12/01/2020 DISCHARGE DATE: ATTENDING MD: SYED CORBETT : AGE: 80 MARITAL STATUS: W DC PLAN ID: [id number] FACILITY: [facility] PRINTED ON: 12/04/20 16:39 CT All edits/amendments must be made on the electronic document DICTATION DATE: 12/04/201638 LEASE ATTENDANT: DESIRE 12/04/20 1639 RPT#: [id number] DC DATE: STATUS: ADM IN [facility] [address] [place] [address] END OF REPORT
[2020-12-04 17:11] VITALS: BP 155/88
[2020-12-04 19:36] VITALS: BP 152/90
--- NOTE | 2020-12-04 23:17 | NUR ---
PATIENT CONFUSED ABOUT WHERE HE IS. PIV TO LEFT ARM PATENT. DAUGHTER AT BEDSIDE. DENIES PAIN. WILL CONTINUE TO MONITOR.
[2020-12-05 04:21] VITALS: BP 160/93
[2020-12-05 07:13] VITALS: BP 167/96
[2020-12-05 07:43] LABS: ALBUMIN 2.7 g/dL (3.4-5.0); BILIRUBIN - TOTAL 1.18 mg/dL (0.2-1.3); CALCIUM 8.3 mg/dL (8.5-10.1); CARBON DIOXIDE 22.3 mmol/L (21.0-32.0); CREATININE - SERUM 1.9 mg/dL (0.6-1.3); MAGNESIUM - SERUM 2.3 mg/dL (1.8-2.4); PROTEIN - SERUM 6.3 g/dL (6.4-8.2)
[2020-12-05 07:44] LABS: POTASSIUM - SERUM 4.3 mmol/L (3.5-5.1)
[2020-12-05 07:54] LABS: BASOPHILS 0.2 % (0-2); EOSINOPHILS 4.7 % (0-7); HEMATOCRIT 28.5 % (42.0-54.0); HEMOGLOBIN 9.2 g/dL (13.5-17.5); IMMATURE GRANULOCYTES 0.4 % (0-5); LYMPHOCYTE ABS# 1.29 10x3/uL (1.32-3.57); LYMPHOCYTES 10.4 % (15-50); MCH 28.5 pg (26.0-34.0); MCHC 32.3 g/dL (31.0-37.0); MCV 88.2 fL (80.0-100.0); MEAN PLATELET VOLUME 10.3 fL (7.4-10.4); MONOCYTES 11.5 % (2-11); NEUTROPHIL ABS# 9.06 10x3/uL (1.78-5.38); NEUTROPHILS 72.8 % (40-80); PLATELET COUNT 248 10x3/uL (130-400); RBC 3.23 10x6/uL (4.20-6.10); RDW 15.4 % (11.5-14.5); WBC 12.4 10x3/uL (4.8-10.8)
--- NOTE | 2020-12-05 08:30 | NUR ---
PT AAOX3 UPON ENTERING. SAT UPRIGHT IN BED TO TAKE MEDICAITON, NO DIFFCULITES. RESTING COMFORTABLY. DENIES ANY NEEDS AT THIS TIME. BED IN LOWEST POSITION, BED RAILS X2, CALL LIGHT WITHIN REACH. FRANKLYN ALARM ON. WILL CONTINUE POC.
--- NOTE | 2020-12-05 11:07 | NUR ---
HUNG IV ABX, TOLERATING WELL. FAMILY AT BEDSIDE. UP IN BEDSIDE CHAIR. DENIES NEEDS AT THIS TIME. WILL CONTINUE POC.
--- NOTE | 2020-12-05 12:34 | NUR ---
8 UNITS INSULIN PER SLIDING SCALE FOR SUGAR OF 316. FAMILY AT BEDSIDE. DENIES ANY NEEDS AT THIS TIME. WILL CONTINUE POC.
--- NOTE | 2020-12-05 12:44 | NUR ---
DO NOT RESUME LISINOPRIL OR HCTZ ON DISCHARGE PER DR. WHITESIDE.
[2020-12-05 12:48] VITALS: BP 137/78
--- NOTE | 2020-12-05 13:32 | NUR ---
GT BELT, PATIEN WALKED 250 FEET WITHOUT ASST DEVICE WITH MIN ASST.
--- NOTE | 2020-12-05 15:59 | NUR ---
PT AMBULATING IN HALLWAY WITHOUT DIFFICULTY. FAMILY ASSISTING WITH AMBULATION. PT DENIES PRESENCE OF DIZZINESS WITH AMBULATION.
[2020-12-05 18:12] VITALS: BP 163/97
--- NOTE | 2020-12-05 19:00 | NUR ---
REMOVED IV IN LEFT AC WITH CATHETER TIP INTACT. PRESSURE DRESSING APPLIED.
--- NOTE | 2020-12-05 19:18 | NUR ---
DISCHARGE INSTRUCTIONS GIVEN BY MERCED CARTY AND DAUGHTER SIGNED PER PT REQUEST. PERSCRIPTIONS GIVEN FOR ORDERED MEDICATIONS. GAVE LEG BAG TO DAUGHTER AND INSTRUCTIONS GIVEN. GAVE X2 CLAY CARE KITS AND INSTRUCTED ON USE.
--- NOTE | 2020-12-05 19:31 | NUR ---
PT ESCORTED TO ER EXIT VIA [facility] WITH ALL BELONGINGS TO MEET DAUGHTER IN AWAITING CAR.
--- NOTE | 2020-12-06 17:08 | MORECARE ---
CASE MANAGEMENT DISCHARGE SUMMARY PATIENT: MANJEET COPELAND UNIT: [id number] ADM DATE: 12/01/20 AGE: 80 : 38 SEX: M ROOM/BED: D.2239 AUTHOR: HECTOR,DOC PHYSICIAN: REFERRING PHYSICIAN: SYED BERMUDEZ MD DATE OF SERVICE: 12/06/20 Case Management Discharge Planning Summary COMMENTS ENTERED DATE: 12/04/20 16:26 CT COMMENT TYPE: Discharge Planning REVIEWER: Deena Parker REFERRAL SENT WITH PATTI OF [facility] WHEN PATIENT DISCHARGES. HE MAY NEED A WALKER DEPENDING ON PT EVAL. WE WILL NEED TO FAX DC ORDER AND SUMMARY TO [facility]. THEY CAN START CARE ON MONDAY IF PATIENT IS DC'D TODAY OR TOMORROW. ENTERED DATE: 12/03/20 16:18 CT COMMENT TYPE: Discharge Planning REVIEWER: Deena Parker CM MET WITH PATIENT DAUGHTER YOANNA PEREZ TODAY. STATES SHE WILL STAY WITH HER DAD FOR LONG HE NEEDS WHEN HE RETURNS HOME. HE WILL NEED HOME HEALTH AND A WALKER AT HOME PER HIS DAUGHTER IF HE QUALIFIES. DAUGHTER ANTICIPATES HOME NO SOONER THAN TOMORROW. CM TO FOLLOW AND ASSIST NEEDED. I WILL SEND REFERRAL TO [facility] AND ORDER A WALKER FROM [facility]. DCP REVIEW SUMMARY ANTICIPATED D/C DATE: EXPECTED LOS : CASE STATUS: DCP Initiated INITIAL REVIEW: 12/01/2020 INITIAL REVIEWER: Deena Parker FINAL DISCHARGE DISPOSITION: : FINAL REVIEWER: FINAL REVIEW DATE: DCP Focus Questions & Answers DCP Screen QUESTION: ANSWER High Risk Factors: : None Age: : 79 + Prior living environment: : Lives Alone Disability ranking: : Grade 2: Slight disability DCP Evaluation QUESTION: ANSWER Patient's ability to cope with chronic illness : d. No chronic illness Would patient like to participate in any Care Coordination programs (if applicable): : Not applicable Mental health screen: : No mental health history DCP Re-evaluation QUESTION: ANSWER Would patient like to participate in any Care Coordination programs (if applicable): : Not applicable PATIENT: MANJEET COPELAND ENCOUNTER: [id number] MEDICAL RECORD#: [id number] ADMISSION DATE: 12/01/2020 DISCHARGE DATE: 12/05/2020 ATTENDING MD: SYED CORBETT : AGE: 80 MARITAL STATUS: W DC PLAN ID: [id number] FACILITY: [facility] PRINTED ON: 12/06/20 17:08 CT All edits/amendments must be made on the electronic document DICTATION DATE: 12/06/201707 SELLING UNDERWRITER: DESIRE 12/06/201707 RPT#: [id number] DC DATE:12/05/20 STATUS: DIS IN [facility] [address] [place] [address] END OF REPORT
--- NOTE | 2020-12-09 09:25 | MORECARE ---
CASE MANAGEMENT DISCHARGE SUMMARY PATIENT: MANJEET COPELAND UNIT: [id number] ADM DATE: 12/01/20 AGE: 80 : 39 SEX: M ROOM/BED: D.2239 AUTHOR: HECTOR,DOC PHYSICIAN: REFERRING PHYSICIAN: SYED BERMUDEZ MD DATE OF SERVICE: 12/09/20 Case Management Discharge Planning Summary COMMENTS ENTERED DATE: 12/04/20 16:26 CT COMMENT TYPE: Discharge Planning REVIEWER: Deena Parker REFERRAL SENT WITH PATTI OF [facility] WHEN PATIENT DISCHARGES. HE MAY NEED A WALKER DEPENDING ON PT EVAL. WE WILL NEED TO FAX DC ORDER AND SUMMARY TO [facility]. THEY CAN START CARE ON MONDAY IF PATIENT IS DC'D TODAY OR TOMORROW. ENTERED DATE: 12/03/20 16:18 CT COMMENT TYPE: Discharge Planning REVIEWER: Deena Parker CM MET WITH PATIENT DAUGHTER YOANNA PEREZ TODAY. STATES SHE WILL STAY WITH HER DAD FOR LONG HE NEEDS WHEN HE RETURNS HOME. HE WILL NEED HOME HEALTH AND A WALKER AT HOME PER HIS DAUGHTER IF HE QUALIFIES. DAUGHTER ANTICIPATES HOME NO SOONER THAN TOMORROW. CM TO FOLLOW AND ASSIST NEEDED. I WILL SEND REFERRAL TO [facility] AND ORDER A WALKER FROM [facility]. DCP REVIEW SUMMARY ANTICIPATED D/C DATE: EXPECTED LOS : CASE STATUS: DCP Initiated INITIAL REVIEW: 12/01/2020 INITIAL REVIEWER: Deena Parker FINAL DISCHARGE DISPOSITION: : FINAL REVIEWER: FINAL REVIEW DATE: DCP Focus Questions & Answers DCP Screen QUESTION: ANSWER High Risk Factors: : None Age: : 79 + Prior living environment: : Lives Alone Disability ranking: : Grade 2: Slight disability DCP Evaluation QUESTION: ANSWER Patient's ability to cope with chronic illness : d. No chronic illness Would patient like to participate in any Care Coordination programs (if applicable): : Not applicable Mental health screen: : No mental health history DCP Re-evaluation QUESTION: ANSWER Would patient like to participate in any Care Coordination programs (if applicable): : Not applicable PATIENT: MANJEET COPELAND ENCOUNTER: [id number] MEDICAL RECORD#: [id number] ADMISSION DATE: 12/01/2020 DISCHARGE DATE: 12/05/2020 ATTENDING MD: SYED CORBETT : AGE: 80 MARITAL STATUS: W DC PLAN ID: [id number] FACILITY: [facility] PRINTED ON: 12/09/20 9:25 CT All edits/amendments must be made on the electronic document DICTATION DATE: 12/09/20924 SUPERVISOR COATING: DESIRE 12/09/20924 RPT#: [id number] DC DATE:12/05/20 STATUS: DIS IN [facility] [address] [place] [address] END OF REPORT
== END 2020-12-05 19:33 | disposition home health service (06) | DRG 982 ==
LOC: D.OPS 08:30 → D.MS 08:30 → D.OPS 11:00 → D.MS 22:32 → D.OPS 12-01 09:30 → D.MS 12-01 09:30
PROVIDERS: Anesthesiology; Family Medicine; Internal Medicine Nephrology; ADMIT Surgery; ATTEND Surgery
PROC: 0YU50JZ Supplement Right Inguinal Region with Synthetic Substitute, Open Approach (ICD-10-PCS; principal; 2020-12-01)
PROC: 0DTJ0ZZ Resection of Appendix, Open Approach (ICD-10-PCS; 2020-12-01)
PROC: 0VC Male Reproductive System, Extirpation (ICD-10-PCS; 2020-12-02)
DX: D62 Acute posthemorrhagic anemia (principal); N17.9 Acute kidney failure, unspecified; N99.841 Postprocedural hematoma of a genitourinary system organ or structure following other procedure; R33.9 Retention of urine, unspecified; K40.90 Unilateral inguinal hernia, without obstruction or gangrene, not specified as recurrent; E87.6 Hypokalemia; E11.22 Type 2 diabetes mellitus with diabetic chronic kidney disease; I12.9 Hypertensive chronic kidney disease with stage 1 through stage 4 chronic kidney disease, or unspecified chronic kidney disease; N18.9 Chronic kidney disease, unspecified; I48.91 Unspecified atrial fibrillation; Y83.9 Surgical procedure, unspecified as the cause of abnormal reaction of the patient, or of later complication, without mention of misadventure at the time of the procedure